=== PATIENT | male | born 1975 | race Caucasian/White ===

== ENCOUNTER 2016-11-08 07:06 | Emergency (ER) | payer OTHER ==
[~2016-11-08] VITALS: Ht 182.9 cm; Wt 127.6 kg
[2016-11-08] MEDS ORDERED: ULTRAM50 MG PO (07:18)
[2016-11-08] MEDS ORDERED: LISINOPRIL10 MG PO (07:18)
[2016-11-08] MEDS ORDERED: METFORMIN HCL1000 MG PO (07:19)
[2016-11-08 08:30] LABS: HEMATOCRIT 45.5 % (38.0-50.0); MCH 28.7 PG (29.0-34.0); MCHC 33.4 G/DL (30.0-36.0); MEAN PLAT.VOLUME 11.4 uM^3 (9.0-12.4); PLATELET COUNT 181 K/uL (156-360); RBC DIS.WIDTH-CV 12.8 % (11.8-14.6); RBC DIS.WIDTH-SD 39.7 % (39-53); RED BLOOD COUNT 5.29 M/uL (4.00-5.50); WHITE BLOOD COUNT 8.9 K/uL (4.1-10.2)
[2016-11-08 08:35] LABS: CHLORIDE 111 mEq/L (99-109); POTASSIUM 5.2 mEq/L (3.7-5.4); SODIUM 142 mEq/L (136-147)
[2016-11-08 08:38] LABS: GLUCOSE 209 mg/dL (70-99)
[2016-11-08 08:39] LABS: ANION GAP 11 MEQ/L (2-14)
[2016-11-08 08:40] LABS: TOTAL BILIRUBIN 0.5 mg/dL (0.0-1.0)
[2016-11-08 08:41] LABS: ALKALINE PHOSPHATASE 68 IU/L (3-129); GFR ESTIMATE (CALCULATED) > 59 mL/min/
[2016-11-08 08:42] LABS: UREA NITROGEN (BUN) 16 mg/dL (9-23)
[2016-11-08 09:21] LABS: ADD MIUA? YES; BILIRUBIN NEGATIVE; BLOOD LARGE; COLOR YELLOW ((YELLOW)); GLUCOSE (STRIP) NEGATIVE; KETONES NEGATIVE; LEUKOCYTES NEGATIVE; NITRITE NEGATIVE; PROTEIN (STRIP) NEGATIVE; SPECIFIC GRAVITY 1.021 (1.000-1.030); UROBILINOGEN 0.2 MG/DL (0.2-1.0)
[2016-11-08 09:53] LABS: BACTERIA NONE SEEN /HPF; CASTS NONE SEEN /LPF; CRYSTALS NONE SEEN; EPITHELIAL CELLS RARE /HPF; MUCUS NONE SEEN /LPF; PATHOLOGICAL CAST NONE SEEN; RED BLOOD CELLS 20-30 /HPF (0-5); SMALL ROUND CELL NONE SEEN; UCUL ADDED? NO; WHITE BLOOD CELLS 0-5 /HPF (0-5); YEAST-LIKE CELL NONE SEEN
[2016-11-08] MEDS ORDERED: LORTAB 10-3251 EACH PO (10:19)
[2016-11-08] MEDS ORDERED: FLOMAX0.4 MG PO (10:19)
[2016-11-08] MEDS ORDERED: ZOFRAN ODT4 MG PO (10:19)
[2016-11-08] MEDS ORDERED: NAPROSYN500 MG PO (10:19)
[2016-11-08 10:29] VITALS: BP 170/95
== END 2016-11-08 10:34 | disposition home or self-care (01) ==
LOC: EME 07:06
PROVIDERS: Nurse Practitioner Family
DX: N13.2 Hydronephrosis with renal and ureteral calculous obstruction (principal); R31.9 Hematuria, unspecified; E11.65 Type 2 diabetes mellitus with hyperglycemia; Z79.84 Long term (current) use of oral hypoglycemic drugs; I10 Essential (primary) hypertension; F17.220 Nicotine dependence, chewing tobacco, uncomplicated
CPT/HCPCS: 74176; 80053; 81003; 85027; 99281; 99284; J1885; J2270; J3010